=== PATIENT | female | born 1985 | race Hispanic/Latino ===

== ENCOUNTER → 2017-06-27 | Outpatient (CLI) | payer OTHER | LOC: M RAD 09:29 | DX: N63.10 Unspecified lump in the right breast, unspecified quadrant (principal) ==

== ENCOUNTER 2018-06-20 12:28 | Outpatient (CLI) | payer OTHER ==
[~2018-06-20] VITALS: Ht 157.5 cm; Wt 72.0 kg
[2018-06-20] MEDS ORDERED: PRENTAB9 PO (12:43)
[2018-06-20] MEDS ORDERED: MAPA500T2 PO (12:44)
[2018-06-20] MEDS ORDERED: TUMS500C PO (12:44)
[2018-06-20 12:48] VITALS: BP 111/54
[2018-06-20 13:38] LABS: HEMOGLOBIN 11.8 g/dl (12.0-15.5); MEAN CORPUSCULAR HEMOGLOBIN 29.9 pg (27.0-33.0); MEAN CORPUSCULAR HGB CONC 33.7 g/dl (32.0-36.5); MEAN CORPUSCULAR VOLUME 88.8 fl (80.0-96.0); PLATELET COUNT, AUTOMATED 256 10^3/uL (150-450); RED BLOOD COUNT 3.94 10^6/uL (4.00-5.40); WHITE BLOOD COUNT 9.8 10^3/uL (4.0-10.0)
[2018-06-20 13:43] LABS: INR 0.99; PROTHROMBIN TIME 13.2 SECONDS (12.1-14.4)
[2018-06-20 13:44] LABS: PARTIAL THROMBOPLASTIN TIME 27.6 SECONDS (25.4-37.6)
== END 2018-06-20 17:00 | disposition home or self-care (01) ==
LOC: M LDO 12:28
PROVIDERS: ATTEND Obstetrics & Gynecology
DX: Z04.3 Encounter for examination and observation following other accident (principal); W00.9XXA Unspecified fall due to ice and snow, initial encounter; Z3A.28 28 weeks gestation of pregnancy; Y92.89 Other specified places as the place of occurrence of the external cause; Y93.89 Activity, other specified; Y99.8 Other external cause status
CPT/HCPCS: 36415; 85027; 85384; 85460; 85610; 85730; G0378; G0463